=== PATIENT | male | born 1950 | race Two or more races ===

== ENCOUNTER 2018-02-18 06:42 | Day surgery (SDC) | payer OTHER, MEDICAID ==
[2018-02-18] MEDS ORDERED: PROPOFOL 40 ML (08:22)
== END 2018-02-18 10:55 | disposition home or self-care (01) ==
LOC: GIL 06:42
DX: Z12.11 Encounter for screening for malignant neoplasm of colon (principal); K64.8 Other hemorrhoids; E11.9 Type 2 diabetes mellitus without complications; I10 Essential (primary) hypertension; E78.5 Hyperlipidemia, unspecified
CPT/HCPCS: 45378; 82962